=== PATIENT | male | born 1985 | race African-American/Black ===

== ENCOUNTER 2017-12-20 11:44 | Emergency (ER) | payer OTHER ==
[~2017-12-20] VITALS: Ht 190.5 cm; Wt 108.9 kg
--- NOTE | ~2017-12-20 | EKG ---
[address] [address] ELECTROCARDIOGRAM REPORT Name: ZAK DAVIS Faustino Room [facility] Elena#: [id number] Admission: 12/20/17 Attend Phys: Discharge: 12/20/17 Date of : 85 Report #: [id number] THIS REPORT FOR: //name// [facility] ED Test Date: 2017-12-20 Test Time: 11:59:53 Pat Name: ZAK DAVIS Department: Room: Gender: [employer] Post[employer] Helper: [facility] : 1985 Requested By: Yodit Singh Order Number: [id number] MD: Osvaldo Wallace Measurements Intervals [place] Rate: 85 P: 25 AR: 151 QRS: 54 QRSD: 77 T: 54 QT: 334 QTc: 398 Interpretive Statements Sinus rhythm Normal tracing Compared to ECG 08/18/2013 19:31:27 Sinus tachycardia no longer present Electronically Signed On 12-21-2017 8:17:11 CDT by Osvaldo Wallace [email or web address] <ELECTRONICALLY SIGNED> By: Osvaldo Wallace MD, [facility] 12/21/17 0817 [id number] Osvaldo Wallace MD, FACC /EPI
[~2017-12-20 11:44] MED LIST: NOHOMEMEDICATIONS
[2017-12-20 13:53] VITALS: BP 129/81
== END 2017-12-20 13:30 | disposition home or self-care (01) ==
LOC: ER 11:44
DX: R07.89 Other chest pain (principal); F17.210 Nicotine dependence, cigarettes, uncomplicated

== ENCOUNTER 2018-08-26 10:01 | Emergency (ER) | payer OTHER ==
[~2018-08-26] VITALS: Ht 190.5 cm; Wt 106.6 kg
[2018-08-26 11:36] VITALS: BP 130/93
== END 2018-08-26 11:25 | disposition home or self-care (01) ==
LOC: ER 10:01
DX: J02.9 Acute pharyngitis, unspecified (principal); J06.9 Acute upper respiratory infection, unspecified; K12.2 Cellulitis and abscess of mouth; F17.210 Nicotine dependence, cigarettes, uncomplicated